=== PATIENT | female | born 1940 | race Caucasian/White ===

== ENCOUNTER 2016-06-30 09:03 | Outpatient (CLI) | payer OTHER | END 2016-06-30 20:34 | disposition home or self-care (01) | LOC: SMA 09:03 | PROVIDERS: ATTEND Family Medicine | DX: Z12.31 Encounter for screening mammogram for malignant neoplasm of breast (principal) | CPT/HCPCS: G0202 ==

== ENCOUNTER 2018-10-12 13:43 | Outpatient (CLI) | payer OTHER | END 2018-10-12 19:01 | disposition home or self-care (01) | LOC: SMA 13:43 | PROVIDERS: ATTEND Family Medicine | DX: Z12.31 Encounter for screening mammogram for malignant neoplasm of breast (principal) | CPT/HCPCS: 77067 ==

== ENCOUNTER 2020-08-04 11:09 | Outpatient (CLI) | payer OTHER | END 2020-08-04 21:02 | disposition home or self-care (01) | LOC: SMA 11:09 | DX: Z12.31 Encounter for screening mammogram for malignant neoplasm of breast (principal) | CPT/HCPCS: 77067 ==